=== PATIENT | female | born 1995 | race Caucasian/White ===

== ENCOUNTER 2021-07-27 08:42 | Inpatient (IN) ==
[2021-07-27 08:47] VITALS: BMI 37.2
[2021-07-27] MEDS ORDERED: REGLAN INJ 10 MG VIAL IVP PRN (09:16)
[2021-07-27] MEDS ORDERED: D5 LR + PITOCIN 10 UNITS/L 10 UNITS/1,000 ML BAG IV PRN (09:16)
[2021-07-27] MEDS ORDERED: MORPHINE SULFATE INJ 2 MG INJ IVP PRN (09:16)
[2021-07-27] MEDS ORDERED: PITOCIN IVP ONE (09:16)
[2021-07-27] MEDS ORDERED: PHENERGAN INJ 25 MG IM PRN ×2 (09:16→15:51)
[2021-07-27] MEDS ORDERED: STADOL INJ IVP PRN (09:18)
[2021-07-27] MEDS ORDERED: BETADINE SOLN ONE (09:23)
[2021-07-27] MEDS ORDERED: PITOCIN ONE (09:23)
[2021-07-27] MEDS ORDERED: D5 1/2 NS 1,000 mL + PITOCIN 20 UNITS/L IV 20 UNITS/1,000 ML BAG IV ONE (09:24)
[2021-07-27 09:34] LABS: BILIRUBIN,URINE NEGATIVE (NEGATIVE); BLOOD/HEMOGLOBIN,URINE 3+ (NEGATIVE); GLUCOSE, URINE NEGATIVE (NEGATIVE); KETONES,URINE NEGATIVE (NEGATIVE); LEUKOCYTE ESTERASE ,URINE NEGATIVE (NEGATIVE); NITRITES,URINE NEGATIVE (NEGATIVE); PROTEIN,URINE NEGATIVE (NEGATIVE); UROBILINOGEN,URINE NORMAL (NORMAL)
[2021-07-27 09:55] LABS: BLOOD UREA NITROGEN 13 mg/dL (7-18); CALCIUM 8.9 mg/dL (8.5-10.1); CARBON DIOXIDE 21.8 mmol/L (21-32); CHLORIDE 106 mmol/L (98-107); CREATININE 0.58 mg/dL (0.55-1.02); SODIUM 137 mmol/L (136-145); eGFR NON BLACK RACES > 60 (>60)
[2021-07-27] MEDS: ZOFRAN INJ 4 MG VIAL ONE ×2 (09:55→10:00)
[2021-07-27 09:59] LABS: APPEARANCE,URINE HAZY (CLEAR); COLOR,URINE PALE YELLOW (YELLOW)
[2021-07-27 10:00] LABS: BACTERIA,URINE TRACE /HPF (NEGATIVE); SQUAMOUS EPITHELIAL CELL,UR MANY /HPF (NEGATIVE)
[2021-07-27] MEDS ORDERED: D5 1/2 NS 1,000 ML 1,000 ML IV SCH (10:00)
[2021-07-27 10:02] LABS: YEAST,URINE RARE /HPF (NEGATIVE)
[2021-07-27 10:03] LABS: AMNISURE ROM TEST NO MEMBRANES RUPTURE (NO RUPTURE)
[2021-07-27 10:06] LABS: BASOPHILS % (AUTO) 0.1 % (0.2-1.0); EOSINOPHILS # (AUTO) 0.1 x10^3/uL (0.0-0.2); EOSINOPHILS % (AUTO) 0.9 % (0.9-2.9); HEMATOCRIT 37.7 % (36.0-47.0); HEMOGLOBIN 13.3 g/dL (12.0-16.0); LYMPHOCYTES # (AUTO) 1.7 X10^3/uL (1.3-2.9); LYMPHOCYTES % (AUTO) 15.7 % (21.0-51.0); MEAN CORPUSCULAR HEMOGLOBIN 32.5 pg (27.0-34.0); MEAN CORPUSCULAR HGB CONC 35.3 g/dL (33.0-35.0); MEAN CORPUSCULAR VOLUME 92.1 fL (80.0-100.0); MEAN PLATELET VOLUME 9.2 fL (7.4-11.0); MONOCYTES # (AUTO) 0.5 x10^3/uL (0.3-0.8); MONOCYTES % (AUTO) 4.7 % (0.0-13.0); NEUTROPHILS # (AUTO) 8.4 x10^3/uL (2.2-4.8); NEUTROPHILS % (AUTO) 78.6 % (42.0-75.0); RED CELL DISTRIBUTION WIDTH 13.4 % (11.6-16.5); WHITE BLOOD COUNT 10.7 X10^3/uL (3.6-10.0)
[2021-07-27] MEDS ORDERED: NAROPIN EPIDURAL 0.2% 100 ML ONE (11:16)
[2021-07-27] MEDS ORDERED: LR 1,000 ML IV 1,000 ML IV ONE (11:16)
[2021-07-27] MEDS ORDERED: FENTANYL VIAL INJ 100 mcg ONE (11:16)
[2021-07-27] MEDS ORDERED: EPHEDRINE SULFATE INJ ONE (11:17)
[2021-07-27] MEDS ORDERED: MOTRIN TAB 800 MG PO PRN (15:51)
[2021-07-27] MEDS: D5 1/2 NS 1,000 ML 1,000 ML with PITOCIN 20 UNITS IV SCH ×2 (16:10)
--- NOTE | 2021-07-27 16:19 | DR.OB ---
OB Quick Note - Assessment/Plan Assessment/Plan: Delivery Note BATH TESTER 07/27/21 at 15:30 Patient complete and pushing. Head delivered over intact perineum. No nuchal cord. Nose and mouth bulb suctioned. Body delivered over intact perineum. Cord clamped x 2 and cut. handed to attendant. Cord sent for gases. Placenta delivered spontaneously / intact / 3 vessel cord. No CVX tears. A small midline second degree tear noted and repaired with 0-vicryl in usual fashion. Viable female infant, VTX/OA, wt=7'6" and 7/8, stable to NBN. Mother stable to RR. [id number].
[2021-07-27] MEDS ORDERED: MILK OF MAGNESIA PO PRN (16:25)
[2021-07-27] MEDS ORDERED: ADACEL or BOOSTRIX TDaP VACCINE IM ONE (16:25)
[2021-07-27] MEDS ORDERED: AMBIEN PO PRN (16:25)
[2021-07-27] MEDS ORDERED: DERMOPLAST PAIN RELIEF SPRAY TOP PRN (16:25)
[2021-07-28] MEDS: D5 1/2 NS 1,000 ML 1,000 ML with PITOCIN 20 UNITS IV SCH ×2 (01:20)
[2021-07-28 04:48] LABS: HEMATOCRIT 33.3 % (36.0-47.0); HEMOGLOBIN 11.7 g/dL (12.0-16.0)
[2021-07-28] MEDS ORDERED: LEXAPRO ONE (08:53)
[2021-07-28] MEDS ORDERED: PRENATAL PLUS PO SCH (09:00)
[2021-07-28] MEDS ORDERED: LEXAPRO PO SCH (09:00)
[2021-07-28 16:24] VITALS: BP 97/57
== END 2021-07-28 17:30 | disposition home or self-care (01) | DRG 807 ==
LOC: ER 08:42 → LD 09:16 → MED/SURG 16:56
PROVIDERS: ADMIT Specialist; ATTEND Specialist